=== PATIENT | male | born 1975 | race Caucasian/White ===

== ENCOUNTER 2019-03-22 10:54 | Day surgery (SDC) | payer MEDICAID ==
[~2019-03-22] VITALS: Ht 188 cm; Wt 101.1 kg
[2019-03-22] VITALS (10 sets, daily range): BP systolic 93–122; BP diastolic 51–82
[2019-03-22] MEDS ORDERED: SYN0.088T PO (11:32)
[2019-03-22] MEDS ORDERED: HYDR-4353 PO (11:32)
[2019-03-22] MEDS ORDERED: DIGO125T PO (11:32)
[2019-03-22] MEDS ORDERED: RIVA20TA PO (11:32)
[2019-03-22] MEDS ORDERED: FURO-150 PO (11:32)
[2019-03-22] MEDS ORDERED: SILD20TA PO (11:32)
[2019-03-22] MEDS ORDERED: AMIO200T61 PO (11:32)
[2019-03-22] MEDS ORDERED: CARV25TA PO (11:32)
[2019-03-22] MEDS ORDERED: LOSA25TA96 PO (11:32)
[2019-03-22] MEDS ORDERED: midazolam 2 mg/2 ml injection ONE ×5 (11:44→13:41)
[2019-03-22] MEDS ORDERED: vancomycin 1,000mg inj ONE ×2 (11:44→12:01)
[2019-03-22] MEDS ORDERED: LIDOcaine 1% W/epiNEPHrine 1:100,000 20ml vial ONE ×2 (11:44→13:21)
[2019-03-22] MEDS ORDERED: fentaNYL/PF 50MCG/1 ML 2ML syringe ONE ×2 (11:44→12:01)
[2019-03-22] MEDS ORDERED: ceFAZolin 1000mg inj ONE ×2 (11:44→11:45)
[2019-03-22 11:45] LABS: BASOPHILS # (AUTO) 0.1 X10'3 (0-0.2); BASOPHILS % (AUTO) 1.1 % (0-1); EOSINOPHILS # (AUTO) 0.1 X10'3 (0-0.9); HEMATOCRIT 41.2 % (42.0-52.0); HEMOGLOBIN 13.8 g/dl (14.0-17.9); LYMPHOCYTES # (AUTO) 1.4 X10'3 (1.1-4.8); LYMPHOCYTES % (AUTO) 27.5 % (21-51); MEAN CORPUSCULAR HEMOGLOBIN 29.7 PG (27.0-31.0); MEAN CORPUSCULAR HGB CONC 33.6 g/dL (33.0-36.5); MEAN CORPUSCULAR VOLUME 88.3 FL (78-98); MEAN PLATELET VOLUME 8.8 FL (7.4-10.4); MONOCYTES # (AUTO) 0.4 X10'3 (0-0.9); MONOCYTES % (AUTO) 7.1 % (2-12); NEUTROPHILS # (AUTO) 3.3 X10'3 (1.8-7.7); NEUTROPHILS % (AUTO) 63.3 % (42-75); PLATELET COUNT 189 X10'3 (140-440); RED BLOOD COUNT 4.66 X10'6 (4.70-6.10); RED CELL DISTRIBUTION WIDTH 14.2 % (11.5-14.5); WHITE BLOOD COUNT 5.2 X10'3 (4.5-11.0)
[2019-03-22 11:59] LABS: ANION GAP 5 (8-16); BLOOD UREA NITROGEN 15 MG/DL (7-18); CHLORIDE 101 MMOL/L (99-107); GLUCOSE 90 MG/DL (70-104); SODIUM 137 MMOL/L (135-145); TOTAL CARBON DIOXIDE 30.7 MMOL/L (24-32)
[2019-03-22 12:00] LABS: ALBUMIN 4.3 G/DL (3.4-5.0); CALCIUM 8.9 MG/DL (8.5-10.1); MAGNESIUM 2.2 MG/DL (1.5-2.4); eGFR 81 ML/MIN
[2019-03-22] MEDS ORDERED: normal saline 1000ml 1,000 ML IV SCH (12:00)
[2019-03-22] MEDS ORDERED: proCHLORperazine 10 MG/2 ml inj ONE (12:00)
[2019-03-22 12:09] LABS: POTASSIUM 3.9 MMOL/L (3.5-5.1)
[2019-03-22] MEDS ORDERED: iohexol 350 MG/ML 50ML vial IV ONE (12:20)
[2019-03-22] MEDS ORDERED: iohexol 350MG/ML 100ml bottle IV ONE (13:05)
[2019-03-22] MEDS ORDERED: ketorolac tromethamine 15mg/ml inj. IV ONE (14:35)
[2019-03-22] MEDS ORDERED: normal saline 1000ml 1,000 ML IV ONE (14:35)
== END 2019-03-22 18:00 | disposition home or self-care (01) ==
LOC: SSTAY O 10:54
PROVIDERS: ATTEND Internal Medicine Cardiovascular Disease
DX: Z45.02 Encounter for adjustment and management of automatic implantable cardiac defibrillator (principal); I47.2 Ventricular tachycardia; I44.7 Left bundle-branch block, unspecified; I42.0 Dilated cardiomyopathy; I48.0 Paroxysmal atrial fibrillation; E03.9 Hypothyroidism, unspecified; J44.9 Chronic obstructive pulmonary disease, unspecified; I10 Essential (primary) hypertension; F19.10 Other psychoactive substance abuse, uncomplicated; Z98.890 Other specified postprocedural states; Z79.899 Other long term (current) drug therapy; Z88.5 Allergy status to narcotic agent
CPT/HCPCS: 33225; 33264; 36415; 71046; 80048; 83735; 85025; 85610; 93005; 99152; 99153; C1769; C1882; C1887; C1895; C1900; J0690; J0780; J1885; J2250; J3010; J3370; J7030; Q9967; 33221; 33224; A4565; A4620